=== PATIENT | male | born 1980 | race Caucasian/White ===

== ENCOUNTER 2017-07-03 08:14 | Emergency (ER) | payer SELFPAY ==
--- NOTE | 2017-07-03 08:25 | EDPHY ---
H & P Stated Complaint: r flank and r abd pain/hx kidney stones yrs ago Time Seen by Provider: 07/03/17 08:24 HPI/ROS: CHIEF COMPLAINT: Right flank pain HISTORY OF PRESENT ILLNESS: The patient presents to the ED with complaints of acute right flank pain. The patient does report a prior history of ureterolithiasis x1. The patient reports that stone passed spontaneously over a 2 day period. The patient reports associated nausea. He characterizes his pain is colicky. He denies any associated dysuria. He denies significant past medical history. He denies prior history of abdominal surgery. He currently rates his pain as moderate in nature. REVIEW OF SYSTEMS: A comprehensive 10 point review of systems is otherwise negative aside from elements mentioned in the history of present illness. 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 - Social History Smoking Status: Never smoked - Physical Exam Exam: General Appearance: Alert, mild discomfort secondary to pain Respiratory: There are no retractions, lungs are clear to auscultation Cardiovascular: Regular rate and rhythm Gastrointestinal: Abdomen is soft and nontender, no masses, bowel sounds normal Back: Right CVA tenderness Neurological: 5/5 strength all 4 extremities Skin: Warm and dry, no rashes Musculoskeletal: Neck is supple nontender Extremities: symmetrical, full range of motion Constitutional: Initial Vital Signs Temperature (C) 36.3 C 07/03/17 08:17 Heart Rate 61 07/03/17 08:17 Respiratory Rate 16 07/03/17 08:17 Blood Pressure 143/104 H 07/03/17 08:17 O2 Sat (%) 97 07/03/17 08:17 O2 Delivery Mode Room Air Allergies/Adverse Reactions: cefaclor [From Ceclor] Allergy (Verified 07/03/17 08:17) Home Medications: Medication Instructions Recorded Ondansetron Odt [Zofran Odt] 4 mg PO Q4PRN PRN #20 tab 07/03/17 Tamsulosin HCl [Flomax] 0.4 mg PO DAILY PRN #5 cap 07/03/17 oxyCODONE/APAP 5/325 [Percocet 1 - 2 tab PO Q6-8PRN PRN #20 tab 07/03/17 5/325 (RX)] Medical Decision Making ED Course/Re-evaluation: The patient had an IV established. His urine dipstick demonstrated 3+ blood. His examination is consistent with recurrent ureterolithiasis. The patient was given 15 mg of IV Toradol. Re-evaluated the patient at 9:15 a.m.. He is comfortable for going imaging given his hematuria and clinical presentation. The patient was noted to have a normal creatinine on i-STAT testing. The patient will be discharged home with a prescription for antinausea medications, pain medications and Flomax. He is given a urinary strainer. He is given the contact number of our on-call urologist. Differential Diagnosis: Differential diagnosis considered includes nephrolithiasis, ureterolithiasis, pyelonephritis - Data Points Laboratory Results: 07/03/17 08:50 POC Hgb 15.6 gm/dL gm/dL (13.7-17.5) POC Hct 46 % % (40-51) POC Sodium 140 mEq/L mEq/L (135-145) POC Potassium 3.9 mEq/L mEq/L (3.3-5.0) POC Chloride 104 mEq/L mEq/L (97-110) POC BUN 15 mg/dL mg/dL (7-23) POC Creatinine 0.7 mg/dL mg/dL (0.7-1.3) POC Glucose 95 mg/dL mg/dL (70-100) Medications Given: Discontinued Medications Sodium Chloride (Ns) 1,000 mls @ 0 mls/hr IV ONCE ONE PRN Reason: Wide Open Stop: 07/03/17 08:53 Last Admin: 07/03/17 08:53 Dose: 1,000 mls Ketorolac Tromethamine (Toradol) 15 mg IVP EDNOW ONE Stop: 07/03/17 08:45 Last Admin: 07/03/17 08:51 Dose: 15 mg Point of Care Test Results: 07/03/17 08:50 POC Sodium 140 POC Potassium 3.9 POC Chloride 104 POC BUN 15 POC Creatinine 0.7 POC Glucose 95 Departure - Departure Disposition: Home, Routine, Self-Care Clinical Impression: Renal colic on right side Condition: Good Instructions: Kidney Stones (ED) Additional Instructions: 1. Take Ibuprofen or Motrin 600 mg by mouth three times a day. 2. Percocet as needed for severe pain 3. Flomax as directed 4. Zofran as needed for nausea 5. Strain urine as directed 6. Return to the Emergency Department for intractable pain, fever or vomiting. 7. Followup with the urologist you have been referred to for unimproved symptoms. Referrals: Patrick Cooley MD [Medical Doctor] - As per Instructions Prescriptions: Ondansetron Odt [Zofran Odt] 4 mg PO Q4PRN PRN #20 tab PRN Reason: For Nausea oxyCODONE/APAP 5/325 [Percocet 5/325 (RX)] 1 - 2 tab PO Q6-8PRN PRN #20 tab PRN Reason: for pain Tamsulosin HCl [Flomax] 0.4 mg PO DAILY PRN #5 cap PRN Reason: for pain
[2017-07-03] MEDS ORDERED: KETOROLAC 15 MG/1 ML SDV IVP ONE (08:44)
[2017-07-03] MEDS ORDERED: NS 1,000 ML IV ONE (08:52)
[2017-07-03] MEDS ORDERED: OXYCODONE/APAP 5/325 TAB PO ONE (09:30)
[2017-07-03] MEDS ORDERED: fentaNYL 100 MCG/2 ML INJ ONE (09:33)
[2017-07-03] MEDS ORDERED: fentaNYL 100 MCG/2 ML INJ IVP ONE (09:37)
[2017-07-03 09:46] VITALS: BP 143/87
== END 2017-07-03 09:43 | disposition home or self-care (01) ==
DX: N23 Unspecified renal colic (principal)
CPT/HCPCS: 82947-QW; 96374; J1885; J3010